=== PATIENT | female | born 1945 | race Caucasian/White ===

== ENCOUNTER 2024-01-15 18:37 | Inpatient (IN) | payer MEDICARE ==
[~2024-01-15] VITALS: Ht 167.6 cm; Wt 65.8 kg
[2024-01-15] MEDS: KETOROLAC TROMETHAMINE 30 MG/ML VIAL IV STA (19:49)
[2024-01-15] MEDS: SODIUM CHLORIDE 0.9% 1000ML 1,000 ML IV STA (19:49)
[2024-01-15 19:54] LABS: BASOPHILS % 0.4 % (0.0-1.0); EOSINOPHILS % 0.2 % (0.0-6.0); HEMATOCRIT 36.8 % (34.2-44.1); HEMOGLOBIN 12.6 g/dL (12.0-16.0); LYMPHOCYTES # (AUTO) 2.3 (1.0-3.2); LYMPHOCYTES % 22.9 % (18.0-39.1); MEAN CORPUSCULAR HEMOGLOBIN 29.5 pg (28-32); MEAN CORPUSCULAR HGB CONC 34.2 g/dL (31-35); MEAN CORPUSCULAR VOLUME 86.2 fL (81-99); MONOCYTES # (AUTO) 0.6 (0.2-0.8); MONOCYTES % 5.8 % (4.4-11.3); NEUTROPHILS # (AUTO) 7.1 (2.1-6.9); NEUTROPHILS % 70.5 % (38.7-80.0); PLATELET COUNT 241 x10e3/uL (140-360); RED BLOOD COUNT 4.27 x10e6/uL (3.6-5.1); RED CELL DISTRIBUTION WIDTH 13.2 % (11.7-14.4); WHITE BLOOD COUNT 10.11 x10e3/uL (4.8-10.8)
[2024-01-15 20:12] LABS: ALBUMIN 3.6 g/dL (3.5-5.0); ALBUMIN/GLOBULIN RATIO 1.1 (0.8-2.0); ANION GAP 14.8 mmol/L (8-16); BILIRUBIN,TOTAL 1.2 mg/dL (0.2-1.2); CALCIUM 10.9 mg/dL (8.4-10.2); CREATININE, SERUM 0.95 mg/dL (0.57-1.11); TOTAL PROTEIN 6.9 g/dL (6.5-8.1)
[2024-01-15 20:18] LABS: TROPONIN I 0.014 ng/mL (0-0.300)
[2024-01-15 20:29] LABS: POTASSIUM 2.8 mmol/L (3.5-5.1)
[2024-01-15] MEDS: SODIUM CHLORIDE 0.9% 1000ML 1,000 ML IV SCH (21:19)
[2024-01-15] MEDS: ONDANSETRON HCL INJ 2MG/ML 2ML 2 MG/ML VIAL IV PRN (21:19)
[2024-01-15] MEDS: POTASSIUM CHLORIDE 20 MEQ TAB CR PO STA (21:20)
[2024-01-15 21:27] VITALS: PULSE 67; RESP 18; O2SAT 98
[2024-01-15 22:11] LABS: OPIATES SCREEN,URINE POSITIVE (NEGATIVE)
[2024-01-15 22:12] LABS: AMPHETAMINES SCREEN,URINE NEGATIVE (NEGATIVE); BENZODIAZEPINES SCREEN,URINE NEGATIVE (NEGATIVE); CANNABINOIDS SCREEN,URINE NEGATIVE (NEGATIVE); METHADONE SCREEN, URINE NEGATIVE (NEGATIVE); PHENCYCLIDINE SCREEN,URINE NEGATIVE (NEGATIVE)
[2024-01-15 22:15] VITALS: BP 118/57; PULSE 77; RESP 16; TEMP 209.5; TEMP 97.7; O2SAT 98
[2024-01-16] VITALS (9 sets, daily range): BP systolic 109–137; BP diastolic 55–79; PULSE 66–70; RESP 17–19; TEMP 97.7–99.2; O2SAT 93–100
[2024-01-16 06:48] LABS: BASOPHILS % 0.5 % (0.0-1.0); EOSINOPHILS # (AUTO) 0.1 (0.0-0.4); EOSINOPHILS % 0.8 % (0.0-6.0); HEMATOCRIT 30.9 % (34.2-44.1); HEMOGLOBIN 9.8 g/dL (12.0-16.0); LYMPHOCYTES # (AUTO) 2.2 (1.0-3.2); LYMPHOCYTES % 34.9 % (18.0-39.1); MEAN CORPUSCULAR HEMOGLOBIN 28.6 pg (28-32); MEAN CORPUSCULAR HGB CONC 31.7 g/dL (31-35); MEAN CORPUSCULAR VOLUME 90.1 fL (81-99); MONOCYTES # (AUTO) 0.4 (0.2-0.8); MONOCYTES % 6.3 % (4.4-11.3); NEUTROPHILS # (AUTO) 3.6 (2.1-6.9); PLATELET COUNT 173 x10e3/uL (140-360); RED BLOOD COUNT 3.43 x10e6/uL (3.6-5.1); RED CELL DISTRIBUTION WIDTH 13.3 % (11.7-14.4)
[2024-01-16 09:02] LABS: ALBUMIN 2.8 g/dL (3.5-5.0); ALBUMIN/GLOBULIN RATIO 1.1 (0.8-2.0); ANION GAP 10.8 mmol/L (8-16); BILIRUBIN,TOTAL 0.8 mg/dL (0.2-1.2); CALCIUM 9.7 mg/dL (8.4-10.2); CREATININE, SERUM 0.84 mg/dL (0.57-1.11); TOTAL PROTEIN 5.3 g/dL (6.5-8.1)
[2024-01-16 09:06] LABS: POTASSIUM 2.8 mmol/L (3.5-5.1)
[2024-01-16 09:08] LABS: TROPONIN I 0.012 ng/mL (0-0.300)
[2024-01-16 16:42] LABS: TROPONIN I 0.009 ng/mL (0-0.300)
[2024-01-16] MEDS: POTASSIUM CHLORIDE 20 MEQ TAB CR PO STA (17:28)
[2024-01-17] VITALS (8 sets, daily range): BP systolic 125–162; BP diastolic 60–82; PULSE 63–73; RESP 18–20; TEMP 98–98.4; O2SAT 97–99
[2024-01-17 07:18] LABS: BASOPHILS % 0.6 % (0.0-1.0); EOSINOPHILS # (AUTO) 0.1 (0.0-0.4); HEMATOCRIT 30.4 % (34.2-44.1); HEMOGLOBIN 9.4 g/dL (12.0-16.0); LYMPHOCYTES # (AUTO) 1.8 (1.0-3.2); LYMPHOCYTES % 34.3 % (18.0-39.1); MEAN CORPUSCULAR HEMOGLOBIN 28.8 pg (28-32); MEAN CORPUSCULAR HGB CONC 30.9 g/dL (31-35); MEAN CORPUSCULAR VOLUME 93.3 fL (81-99); MONOCYTES # (AUTO) 0.3 (0.2-0.8); NEUTROPHILS % 57.7 % (38.7-80.0); PLATELET COUNT 158 x10e3/uL (140-360); RED BLOOD COUNT 3.26 x10e6/uL (3.6-5.1); RED CELL DISTRIBUTION WIDTH 13.3 % (11.7-14.4); WHITE BLOOD COUNT 5.19 x10e3/uL (4.8-10.8)
[2024-01-17 07:39] LABS: ANION GAP 11.1 mmol/L (8-16); CALCIUM 9.8 mg/dL (8.4-10.2); CREATININE, SERUM 0.74 mg/dL (0.57-1.11)
[2024-01-17 07:45] LABS: POTASSIUM 3.1 mmol/L (3.5-5.1)
[2024-01-17 07:48] LABS: TROPONIN I 0.007 ng/mL (0-0.300)
[2024-01-17] MEDS: ACETAMINOPHEN 325 MG TAB PO PRN (16:12)
[2024-01-17] MEDS: POTASSIUM CHLORIDE 20 MEQ TAB CR PO STA (19:46)
[2024-01-18 00:17] VITALS: BP 134/75; PULSE 66; RESP 18; TEMP 98.4; O2SAT 97
[2024-01-18 04:13] VITALS: BP 133/67; PULSE 61; RESP 18; TEMP 98.1; O2SAT 98
[2024-01-18 06:47] LABS: ANION GAP 11.7 mmol/L (8-16); CALCIUM 9.9 mg/dL (8.4-10.2); CREATININE, SERUM 0.74 mg/dL (0.57-1.11); POTASSIUM 3.7 mmol/L (3.5-5.1)
[2024-01-18 07:05] LABS: THYROID STIMULATING HORMONE 2.221 uIU/mL (0.350-4.940)
[2024-01-18 08:20] VITALS: BP 161/65; PULSE 62; RESP 18; TEMP 97.6; O2SAT 100
[2024-01-18 09:00] VITALS: BP 161/65; PULSE 62; RESP 18; TEMP 97.6; O2SAT 100
[2024-01-18 10:19] LABS: COLOR,URINE YELLOW (YELLOW)
[2024-01-18 10:20] LABS: BILIRUBIN,URINE NEGATIVE (NEGATIVE); CLARITY,URINE CLEAR (CLEAR); GLUCOSE, URINE NEGATIVE (NEGATIVE); KETONES,URINE NEGATIVE (NEGATIVE); LEUKOCYTE ESTERASE ,URINE NEGATIVE (NEGATIVE); NITRITE,URINE NEGATIVE (NEGATIVE); PH,URINE 6 (5 - 7); PROTEIN,URINE DIPSTICK NEGATIVE (NEGATIVE); URINE UROBILINOGEN 0.2 mg/dL (0.2 - 1)
[2024-01-18 10:50] LABS: EPITHELIAL CELLS,URINE RARE /LPF
[2024-01-18 10:51] LABS: BACTERIA,URINE MANY /HPF; RBC,URINE 0-5 /HPF (0-5)
[2024-01-18 11:30] VITALS: BP 140/75; PULSE 66; RESP 17; TEMP 98.6; O2SAT 99
[2024-01-18 15:33] VITALS: BP 153/75; PULSE 66; RESP 18; TEMP 98.7; O2SAT 97
[2024-01-18] MEDS ORDERED: LEVOTHYROXINE50 MCG PO (16:55)
[2024-01-18] MEDS ORDERED: ZESTRIL40 MG PO (16:59)
== END 2024-01-18 18:32 | disposition left against medical advice (07) | DRG 315 ==
LOC: ER 18:52 → ERHOLD 20:57 → MED/SURG2 21:49 → OBSVTOIN 01-18 15:58
PROVIDERS: ADMIT Internal Medicine; ATTEND Internal Medicine
DX: I95.9 Hypotension, unspecified (principal); R64 Cachexia; R55 Syncope and collapse; E87.6 Hypokalemia; M54.50 Low back pain, unspecified; M25.512 Pain in left shoulder; M25.552 Pain in left hip; W18.30XA Fall on same level, unspecified, initial encounter; I10 Essential (primary) hypertension; E03.9 Hypothyroidism, unspecified; E66.9 Obesity, unspecified; D64.9 Anemia, unspecified; Z79.890 Hormone replacement therapy; Z11.52 Encounter for screening for COVID-19; Z53.29 Procedure and treatment not carried out because of patient's decision for other reasons
CPT/HCPCS: 36415; 70450; 71045; 72125; 72131; 80048; 80053; 80307; 80320; 81001; 82550; 84443; 84484; 85025; 93005; 94799; 99284; G0378; J1885; J2405; J7030; U0002